=== PATIENT | female | born 1960 | race Caucasian/White ===

== ENCOUNTER 2017-09-08 14:52 | Emergency (ER) | payer MEDICAID ==
[2017-09-08] MEDS: ONDANSETRON (ODT) 4 MG TAB ODT (17:15)
[2017-09-08] MEDS: HYDROCODONE/APAP (5/325) TAB PO (17:15)
== END 2017-09-08 17:53 | disposition home or self-care (01) ==
LOC: FTE 14:52
DX: S92.902A Unspecified fracture of left foot, initial encounter for closed fracture (principal); W18.39XA Other fall on same level, initial encounter; Y92.9 Unspecified place or not applicable
CPT/HCPCS: 29515; 73630-LT; 99283-25